=== PATIENT | female | born 1985 | race African-American/Black ===

== ENCOUNTER 2018-07-17 02:32 | Emergency (ER) | payer MEDICAID ==
[~2018-07-17] VITALS: Ht 167.6 cm; Wt 66.0 kg
[2018-07-17 02:35] VITALS: BP 125/82
== END 2018-07-17 06:17 | disposition left against medical advice (07) ==
LOC: ER 02:32
DX: Z53.21 Procedure and treatment not carried out due to patient leaving prior to being seen by health care provider (principal)

== ENCOUNTER 2019-01-27 18:31 | Emergency (ER) | payer MEDICAID ==
[~2019-01-27] VITALS: Ht 157.5 cm; Wt 65.0 kg
[2019-01-27 18:53] VITALS: BP 150/88
== END 2019-01-27 23:00 | disposition left against medical advice (07) ==
LOC: ER 18:31
DX: Z53.21 Procedure and treatment not carried out due to patient leaving prior to being seen by health care provider (principal)

== ENCOUNTER 2024-12-24 03:36 | Emergency (ER) | payer MEDICAID, OTHER ==
[~2024-12-24] VITALS: Ht 167.6 cm; Wt 55.0 kg
[2024-12-24] MEDS ORDERED: METHYLPREDNISOLONE 40MG/ML INJ IV ONE (04:45)
[2024-12-24 05:22] LABS: BASOPHILS % 0.5 % (0.0-2.0); EOSINOPHILS % 0.7 % (0.0-5.0); HEMATOCRIT. 41.5 % (36.0-48.0); HEMOGLOBIN. 14.2 g/dL (12.0-16.0); LYMPHOCYTES % 33.1 % (20.0-50.0); MEAN CORPUSCULAR HEMOGLOBIN 29.7 pg (28.0-32.0); MEAN CORPUSCULAR HGB CONC 34.3 g/dL (31.0-37.0); MEAN CORPUSCULAR VOLUME 86.6 fL (81.0-99.0); NEUTROPHILS % 57.7 % (40.0-76.0); PLATELET 452 x1000/uL (130-400); RED BLOOD CELL COUNT 4.79 mill/uL (4.2-5.4); RED CELL DISTRIBUTION WIDTH 14.3 % (11.6-14.6); WHITE BLOOD COUNT 8.1 x1000/uL (4.5-11.0)
[2024-12-24 05:32] LABS: CHLORIDE 95 mEq/L (98-107)
[2024-12-24 05:33] LABS: CALCIUM 10.5 mg/dL (8.7-10.4); CARBON DIOXIDE 28 mEq/L (21-32)
[2024-12-24 05:38] LABS: CREATININE 0.9 mg/dL (0.6-1.0); GLUCOSE 121 mg/dL (70-105)
[2024-12-24 05:39] LABS: UREA NITROGEN BLOOD 10 mg/dL (9-23)
[2024-12-24 05:40] LABS: ALANINE AMINOTRANSFERASE 12 IU/L (10-49); ALBUMIN 5.3 g/dL (3.2-4.8); ASPARTATE AMINOTRANSFERASE 18 IU/L (<34); BILIRUBIN DIRECT 0.3 mg/dL (<=3.0); HCG SCREEN NEGATIVE
[2024-12-24 05:41] LABS: BILIRUBIN TOTAL 1.3 mg/dL (0.1-1.0); PROTEIN TOTAL 9.5 g/dL (6.0-8.3)
[2024-12-24] MEDS: IPRATROPIUM/ALBUTEROL 0.5-3(2.5)MG/3ML NEB HHN ONE (05:44)
[2024-12-24 05:45] VITALS: PULSE 83; RESP 20; O2SAT 96
[2024-12-24] MEDS: ONDANSETRON HCL 4MG TABLET PO ONE (05:47)
[2024-12-24 05:49] LABS: SODIUM 134 mEq/L (136-145)
[2024-12-24] MEDS: KETOROLAC 15MG/ML VIAL IM ONE (05:51)
[2024-12-24 05:55] LABS: POTASSIUM 2.8 mEq/L (3.5-5.1)
[2024-12-24] MEDS ORDERED: IPRATROPIUM/ALBUTEROL 0.5-3(2.5)MG/3ML NEB HHN SCH (06:45)
[2024-12-24] MEDS: METHYLPREDNISOLONE SOD SUCC 125MG/2ML (ACT-O-VIAL) IV NR (06:49)
[2024-12-24] MEDS: KCL 20MEQ/100ML PREMIX 100 ML IV SCH (07:22)
[2024-12-24] MEDS: SODIUM CHLORIDE 0.9% 1,000 ML IV ONE (07:22)
[2024-12-24] MEDS: ONDANSETRON HCL 4MG/2ML INJ IV STA (07:58)
[2024-12-24] MEDS: ACETAMINOPHEN 325MG TABLET PO NR (14:41)
[2024-12-24] MEDS: KETOROLAC 15MG/ML VIAL IV NR (15:44)
[2024-12-24 16:55] VITALS: BP 158/86; PULSE 79; RESP 18; TEMP 37.3; O2SAT 96
== END 2024-12-24 16:54 | disposition left against medical advice (07) ==
LOC: ER 03:36 → CANBEDREQ 07:52 → ER 16:54
DX: R11.2 Nausea with vomiting, unspecified (principal); E87.6 Hypokalemia; J45.909 Unspecified asthma, uncomplicated
CPT/HCPCS: 80076; 80048; 84703; 83690; 83735; 85025; 36415; 94640; 96365; 96372; 96375; 99285; Q0162; J1885; J2919; J2405; J3480; Z7610 ×2; J7030; 94070; 94664; 98960; J2920